=== PATIENT | female | born 1985 | race Caucasian/White ===

== ENCOUNTER 2018-03-01 14:35 | Outpatient (CLI) | payer BC ==
[2018-03-01 15:22] LABS: #Basophils 0.1 thou/uL (0.0-0.2); #Eosinphils 0.2 thou/uL (0.0-0.7); #Lymphocytes 2.9 thou/uL (1.20-3.40); #Monocytes 0.4 thou/uL (0.11-0.59); #Neutrophils 3.2 thou/uL (1.40-6.50); %Basophils 1.3 % (0.0-1.0); %Eosinophils 3.4 % (0.0-10.0); %Monocytes 6.2 % (0.0-10.0); Hemoglobin 13.8 g/dL (12.0-16.0); Mean Corpuscular HGB CONC 32.8 g/dL (32.0-36.0); Mean Corpuscular Hemoglobin 31.5 pg (27.0-31.0); Mean Corpuscular Volume 95.9 fL (78.0-98.0); Mean Platelet Volume 7.7 fL (7.4-10.4); Platelet Count 281 thou/uL (130-400); RBC Distribution Width 11.1 % (11.5-14.5); Red Blood Cell (RBC) Count 4.37 mill/uL (4.20-5.40); White Blood Cell (WBC) Count 6.9 thou/uL (4.8-10.8)
[2018-03-01 15:44] LABS: Anion Gap 11 mmol/L (10-20); BUN (Urea Nitrogen) 10 mg/dL (7.0-18.7); Calc. Creatinine Clearance 0 mL/min (70-130); Calcium 9.4 mg/dL (7.8-10.44); Carbon Dioxide 24 mmol/L (22-29); Chloride 105 mmol/L (98-107); Estimated GFR-MDRD 86; Glucose 93 mg/dL (70-105); Potassium 4.2 mmol/L (3.5-5.1); Sodium 136 mmol/L (136-145)
== END 2018-03-01 14:36 | disposition home or self-care (01) ==
LOC: LABBT 14:35
PROVIDERS: ATTEND Surgery
DX: Z01.812 Encounter for preprocedural laboratory examination (principal); K43.2 Incisional hernia without obstruction or gangrene
CPT/HCPCS: 80048; 85025

== ENCOUNTER 2018-03-08 08:06 | Day surgery (SDC) | payer BC ==
[2018-03-01 14:42] VITALS: BMI 29.0
[2018-03-08] MEDS ORDERED: Ketorolac Tromethamine 30 MG/ML VIAL ONE (08:53)
[2018-03-08] MEDS ORDERED: CEFAZOLIN/Water 2 GM/20 ML SYRINGE ONE (08:54)
[2018-03-08] MEDS ORDERED: Scopolamine 1.5 mg/72 hour Patch ONE (08:54)
[2018-03-08] MEDS ORDERED: Fentanyl 100 MCG/2 ML VIAL ONE ×2 (09:56→13:09)
[2018-03-08] MEDS ORDERED: Propofol 1,000 MG/100 ML VIAL IV ONE (10:11)
[2018-03-08] MEDS ORDERED: Ketamine 50 MG/ML VIAL ONE (10:11)
[2018-03-08] MEDS ORDERED: Midazolam HCl 2 mg/2 ml Vial ONE (10:11)
[2018-03-08] MEDS ORDERED: Bupivacaine/Epinephrine 0.25% 30 ML VIAL ONE (10:24)
[2018-03-08] MEDS ORDERED: SUGAMMADEX SODIUM 500 MG/5 ML VIAL ONE (12:41)
[2018-03-08] MEDS ORDERED: HYDROmorphone 2 MG/ML VIAL ONE (13:13)
[2018-03-08] MEDS ORDERED: Dexamethasone 20 MG/5 ML VIAL ONE (15:00)
[2018-03-08] MEDS ORDERED: Lidocaine 1% PF 5 ML VIAL ONE (15:00)
[2018-03-08] MEDS ORDERED: PROPOFOL 200 MG/20 ML VIAL ONE (15:00)
[2018-03-08] MEDS ORDERED: HYDROcodone/Acetaminophen 5/325 mg Tablet ONE (15:02)
--- NOTE | 2018-03-11 13:15 | OP ---
DATE OF SERVICE: 03/08/2018 PREOPERATIVE DIAGNOSIS: Incisional hernia. POSTOPERATIVE DIAGNOSIS: Incisional hernia. PROCEDURE: Laparoscopic da Aidan incisional hernia repair with mesh 4.5-inch Ventralight ST. SURGEON: Laureano Beck M.D. ANESTHESIA: General. ESTIMATED BLOOD LOSS: Minimal. COMPLICATIONS: None. SPECIMENS: None. FINDINGS: Incisional hernia. TECHNIQUE: The patient was taken to the operating room and placed supine on the table. After genera l anesthetic was obtained, Warner was placed. The abdomen was prepped and draped in a sterile fashion . Left subcostal 5-mm Optiview trocar was placed in the usual fashion without injury and high-flow p neumoperitoneum was obtained. Left and right abdominal 8 mm robot trocars were placed. A 5 mm port switched out to an 11 mm balloon trocar. All ports were docked to the robot. Surgeon goes to the co nsole. The posterior abdominal wall adhesions were all taken down exposing the two incisional defect s. The incisional defects were able to be closed using continuous running #1 V-Loc suture. An 8 cm [place] of Ventralex ST mesh was brought into the sterile field. It is cut to an 8 cm cl[place], soaked in saline and marked on its nonadherence side and placed into the abdominal cavity. The nonadherent surface is left down against the abdominal viscera. The exposed mesh placed up against the posterior fascia. It is held in place to the posterior abdominal wall using the needle from the #1 V-Loc. 2- 0 V-Loc is used to sew the mesh to the posterior fascia circumferentially around the edges. This com pletely covers the primarily close defect. All needles were able to be removed from the abdomen and accounted for. Local anesthetic infiltrated to all incision sites. All ports were removed under cam era visualization and pneumoperitoneum was let down. 4-0 Monocryl and Dermabond were used to close a ll skin incisions. The patient was en route to recovery in stable condition. All instrument counts, needle counts and lap counts were correct.
== END 2018-03-08 15:51 | disposition home or self-care (01) ==
LOC: SDC 08:06
PROVIDERS: ATTEND Surgery
PROC: 0WUF4JZ Supplement Abdominal Wall with Synthetic Substitute, Percutaneous Endoscopic Approach (ICD-10-PCS; principal; 2018-03-08)
DX: K43.2 Incisional hernia without obstruction or gangrene (principal); D64.9 Anemia, unspecified; F17.200 Nicotine dependence, unspecified, uncomplicated; Z79.899 Other long term (current) drug therapy; Z88.0 Allergy status to penicillin; Z88.8 Allergy status to other drugs, medicaments and biological substances
CPT/HCPCS: 96374; 96375; C1781; J0131; J1100; J1170; J1885; J2001; J2250; J2704; J3010

== ENCOUNTER 2022-12-26 12:38 | Outpatient (CLI) | payer BC | END 2022-12-26 12:39 | disposition home or self-care (01) | LOC: NM 12:38 | PROVIDERS: ATTEND Internal Medicine Gastroenterology | DX: R10.11 Right upper quadrant pain (principal); K21.9 Gastro-esophageal reflux disease without esophagitis | CPT/HCPCS: 78227; A9537 ==

== ENCOUNTER 2023-02-16 15:38 | Outpatient (CLI) | payer BC ==
[2023-02-16 16:54] LABS: #Basophils 0.1 10x3/uL (0.0-0.2); #Eosinphils 0.3 10x3/uL (0.0-0.5); #Monocytes 0.5 10x3/uL (0.0-1.1); %Basophils 1.5 % (0.0-2.0); %Eosinophils 3.4 % (0.0-6.0); %Lymphocytes 43.2 % (18.0-47.0); %Monocytes 5.9 % (0.0-10.0); %Neutrophils 45.8 % (40.0-75.0); Hematocrit 41.7 % (34.9-44.5); Hemoglobin 13.6 g/dL (12.0-15.5); Mean Corpuscular HGB CONC 32.6 g/dL (32.0-36.0); Mean Corpuscular Hemoglobin 30.5 pg (27.0-33.0); Mean Corpuscular Volume 93.5 fl (81.6-98.3); Mean Platelet Volume 10.5 fl (7.4-10.4); Platelet Count 300 10x3/uL (150-450); RBC Distribution Width 11.9 % (11.5-14.5); Red Blood Cell (RBC) Count 4.46 10x6/uL (3.90-5.03); White Blood Cell (WBC) Count 8.8 10x3/uL (3.5-10.5)
[2023-02-16 17:17] LABS: ALT (SGPT) 19 U/L (8-55); AST (SGOT) 19 U/L (5-34); Albumin 4.4 g/dL (3.5-5.0); Alkaline Phosphatase 55 U/L (40-110); Anion Gap 13 mmol/L (10-20); BUN (Urea Nitrogen) 5 mg/dL (7.0-18.7); Bilirubin, Direct 0.2 mg/dL (0.1-0.3); Bilirubin, Total 0.5 mg/dL (0.2-1.2); Calc. Creatinine Clearance 0 mL/min (70-130); Calcium 9.1 mg/dL (7.8-10.44); Carbon Dioxide 22 mmol/L (22-29); Chloride 106 mmol/L (98-107); Estimated GFR 100; Glucose 101 mg/dL (70-105); Potassium 3.9 mmol/L (3.5-5.1); Protein, Total 6.8 g/dL (6.0-8.3); Sodium 137 mmol/L (136-145)
== END 2023-02-16 15:39 | disposition home or self-care (01) ==
LOC: LABBT 15:38
PROVIDERS: ATTEND Surgery
DX: Z01.812 Encounter for preprocedural laboratory examination (principal); K82.8 Other specified diseases of gallbladder
CPT/HCPCS: 80048; 80076; 85025

== ENCOUNTER 2023-02-21 06:00 | Day surgery (SDC) | payer BC ==
[2023-02-16 16:01] VITALS: BMI 32.5
[2023-02-21] MEDS ORDERED: fentaNYL PF 100 MCG/2 ML SYRINGE ONE (06:42)
[2023-02-21] MEDS ORDERED: EPINEPHrine 1 MG/ML AMP ONE (06:42)
[2023-02-21] MEDS ORDERED: Bupivacaine 0.25% HCL 30 ML VIAL ONE (06:42)
[2023-02-21] MEDS ORDERED: Indocyanine Green 25 MG/10 ML VIAL ONE (06:42)
[2023-02-21] MEDS ORDERED: Scopolamine 1.5 mg/72 hour Patch ONE (07:18)
[2023-02-21] MEDS ORDERED: LevoFLOXacin 500 mg/D5W 100 ML BAG ONE (07:30)
[2023-02-21] MEDS ORDERED: Glycopyrrolate 0.2 MG/ML 5 ML SYRINGE ONE (07:43)
[2023-02-21] MEDS ORDERED: Lidocaine 1% PF 5 ML VIAL ONE (07:43)
[2023-02-21] MEDS ORDERED: Ondansetron PF 4 MG/2 ML Vial ONE ×2 (07:43→08:53)
[2023-02-21] MEDS ORDERED: Rocuronium Bromide 10 MG/ML (10ML VIAL) ONE (07:43)
[2023-02-21] MEDS ORDERED: NEOSTIGMINE 3 MG/3 ML SYR 3 MG/3 ML SYRINGE ONE (07:43)
[2023-02-21] MEDS ORDERED: PROPOFOL 200 MG/20 ML VIAL ONE (07:43)
[2023-02-21] MEDS ORDERED: Dexamethasone 20 MG/5 ML VIAL ONE (07:43)
[2023-02-21] MEDS ORDERED: HYDROmorphone 0.5 MG/0.5 ML SYRINGE ONE ×2 (09:01→09:58)
[2023-02-21] MEDS ORDERED: Promethazine HCl 25 MG/ML VIAL ONE (09:43)
[2023-02-21] MEDS ORDERED: HYDROcodone/Acetaminophen 5/325 mg Tablet ONE (10:33)
== END 2023-02-21 11:57 | disposition home or self-care (01) ==
LOC: SDC 06:00
PROVIDERS: ATTEND Surgery
PROC: 0FT44ZZ Resection of Gallbladder, Percutaneous Endoscopic Approach (ICD-10-PCS; principal; 2023-02-21)
DX: K81.1 Chronic cholecystitis (principal); K82.8 Other specified diseases of gallbladder
CPT/HCPCS: 88304; J0171; J1100; J1170; J1956; J2405; J2550; J2704; S0020